=== PATIENT | male | born 1990 | race Caucasian/White ===

== ENCOUNTER 2019-01-07 13:41 | Emergency (ER) | payer BC ==
--- NOTE | 2019-01-07 14:06 | EDM.PDOC ---
ED HPI GENERAL MEDICAL PROBLEM - General Chief Complaint: ENT Problem Stated Complaint: SORE THROAT,CONGESTION,COUGH Time Seen by Provider: 01/07/19 13:58 Source of Information: Reports: Patient, RN Notes Reviewed History Limitations: Reports: No Limitations - History of Present Illness INITIAL COMMENTS - FREE TEXT/NARRATIVE: Patient is a 28-year-old male who presents to the ED for the evaluation of chest congestion, cough, sore throat. Patient notes these symptoms have been present for about 3 days now. He notes that he has a productive cough, and that the sputum he is getting up is greenish in color. He states he can get up about a quarter size amount of phlegm each time he coughs. He notes that he has a sore throat, this is more of a dull ache in the back of his throat. He states that the pain is worsened when he tries to swallow any liquids. He complains of some nasal congestion as well, but no fevers or chills, nausea or vomiting or diarrhea, or chest pain. Patient states that he has a history of asthma or reactive airways disease, and normally uses an albuterol inhaler, but he has been out. He moved to [place] from [place] in July for a job on the [employer]. The patient also notes that he recently quit smoking about a month ago, he states he is an alcohol user, but denies any drug use. He has had a tonsillectomy, and his wisdom teeth taken out as well. Patient has no primary care provider in town. Throat Pain Score (Numeric/FACES): 2 - Related Data Allergies Allergy/AdvReac Type Severity Reaction Status Date / Time No Known Allergies Allergy Verified 01/07/19 14:01 Home Meds: Home Meds Albuterol Sulfate [Albuterol Sulfate Hfa] 8.5 gm IH Q4H PRN #1 inhaler 01/07/19 [Rx] Past Medical History Respiratory History: Reports: Asthma - Past Surgical History HEENT Surgical History: Reports: Oral Surgery, Tonsillectomy Social & Family History - Tobacco Use Smoking Status *Q: Former Smoker Used Tobacco, but Quit: Yes Month/Year Tobacco Last Used: 12/30/18 - Caffeine Use Caffeine Use: Reports: Coffee, Energy Drinks - Recreational Drug Use Recreational Drug Use: No ED ROS ENT - Review of Systems Review Of Systems: See Below Constitutional: Denies: Fever, Chills HEENT: Reports: Throat Pain, Other (nasal congestion) Respiratory: Reports: Cough, Sputum. Denies: Wheezing Cardiovascular: Denies: Chest Pain Endocrine: Reports: No Symptoms GI/Abdominal: Denies: Diarrhea, Nausea, Vomiting : Reports: No Symptoms Musculoskeletal: Reports: No Symptoms Skin: Reports: No Symptoms Neurological: Reports: No Symptoms Psychiatric: Reports: No Symptoms Hematologic/Lymphatic: Reports: No Symptoms Immunologic: Reports: No Symptoms ED EXAM, ENT - Physical Exam Exam: See Below Exam Limited By: No Limitations General Appearance: Alert, WD/WN, No Apparent Distress Eye Exam: Bilateral Eye: EOMI, Normal Inspection, PERRL Ears: Normal External Exam, Normal Canal, Hearing Grossly Normal, Normal TMs Nose: Normal Inspection, No Blood, Injected Turbinates (bilateral) Mouth/Throat: Normal Inspection, Normal Gums, Normal Lips, Normal Oropharynx ( slightly erythematous, but looks as if it might irritation), Normal Teeth Head: Atraumatic, Normocephalic Neck: Normal Inspection, Supple, Non-Tender, Full Range of Motion Respiratory/Chest: No Respiratory Distress, Lungs Clear, No Accessory Muscle Use , Chest Non-Tender, Decreased Breath Sounds (diminished breath sounds bilaterally) Cardiovascular: Normal Peripheral Pulses, Regular Rate, Rhythm, No Murmur Extremities: Normal Inspection, Normal Capillary Refill Neurological: Alert, Oriented, Normal Cognition, No Motor/Sensory Deficits Psychiatric: Normal Affect, Normal Mood Skin: Warm, Dry, Intact, Normal Color, No Rash Course - Vital Signs Last Recorded V/S: Last Vital Signs Temp 98.0 F 01/07/19 13:58 Pulse 56 L 01/07/19 13:58 Resp 16 01/07/19 13:58 BP 133/76 01/07/19 13:58 Pulse Ox 97 01/07/19 13:58 - Orders/Labs/Meds Orders: Active Orders 24 hr Category Date Time Status Influenza Vaccine Charge [RC] .DISCHARGE Care 01/07/19 14:05 Ordered CULTURE STREP A CONFIRMATION [RM] Stat Lab 01/07/19 14:05 Results STREP SCRN A RAPID W CULT CONF [RM] Stat Lab 01/07/19 14:05 Ordered Meds: Medications Discontinued Medications Generic Name Dose Route Start Last Admin Trade Name Freleanne PRN Reason Stop Dose Admin Influenza Virus Vaccine 1 each 01/07/19 14:05 Pharmacy To Dose - Influenza Vaccine IM 01/07/19 14:06 ONETIME ONE Influenza Virus Vaccine 60 mcg 01/07/19 14:15 01/07/19 14:31 Fluzone Quad [id number] Syringe IM 01/07/19 14:16 60 mcg .ONCE ONE Administration - Re-Assessments/Exams Free Text/Narrative Re-Assessment/Exam: 01/07/19 14:28 Patient presents to the ED for the evaluation for a sore throat, cough, and chest congestion. I did order a strep screen to evaluate for strep throat. The patient did state that he did run out of his inhaler a few days ago, and was requesting a new one at this visit. I will provide him with a script for one, and recommend that he follow up with family practice for further asthma needs. 01/07/19 14:36 Patient's rapid strep screen is negative, this however will be sent for culture for confirmation. Although I highly suspect this to will be negative. Patient will be discharged home with general recommendations. Departure - Departure Time of Disposition: 14:37 Disposition: Home, Self-Care 01 Condition: Fair Clinical Impression: Viral URI with cough, History of reactive airway disease - Discharge Information *PRESCRIPTION DRUG MONITORING PROGRAM REVIEWED*: No *COPY OF PRESCRIPTION DRUG MONITORING REPORT IN PATIENT OWEN: No Prescriptions: Albuterol Sulfate [Albuterol Sulfate Hfa] 8.5 gm IH Q4H PRN #1 inhaler PRN Reason: Shortness Of Breath Instructions: Viral Respiratory Infection, [id number] Referrals: PCP,None [Primary Care Provider] - Forms: ED Department Discharge Additional Instructions: You have been evaluated in the ED today for your cold like symptoms, cough, sore throat. This is likely a viral illness in etiology. Please increase your fluid intake. Get plenty of rest as well. You should feel better in a few days. Recommend that you take some [id number] nasal decongestants, cough/cold remedies to combat this. Medicines like NyQuil, DayQuil, phenylephrine and other sinus decongestants are adequate. If your symptoms are not better in one week's time recommend that you follow up in a clinic or your primary care provider. Our [facility] clinic number [phone], the [place] [facility] number is [phone]. Any family practice provider would be able to provide you with the services. You were provided with a script for an albuterol inhaler. This was electronically sent to the [place] [facility] located in the [employer] [facility]. Please use 1-2 puffs Q4H PRN for shortness of breath. This pharmacy is located at [address] [place] [address]. Please return to the ED if your symptoms change or worsen. - My Orders Last 24 Hours: My Active Orders 01/07/19 14:05 Influenza Vaccine Charge [RC] .DISCHARGE CULTURE STREP A CONFIRMATION [RM] Stat STREP SCRN A RAPID W CULT CONF [RM] Stat - Assessment/Plan Last 24 Hours: My Active Orders 01/07/19 14:05 Influenza Vaccine Charge [RC] .DISCHARGE CULTURE STREP A CONFIRMATION [RM] Stat STREP SCRN A RAPID W CULT CONF [] Stat
[2019-01-07] MEDS ORDERED: FLU Vacc QS2019-20(6MOS+)/PF 60 MCG/0.5 ML SYRINGE IM ONE (14:15)
== END 2019-01-07 14:43 | disposition home or self-care (01) ==
LOC: JD.ED 13:41
DX: J06.9 Acute upper respiratory infection, unspecified (principal); J45.909 Unspecified asthma, uncomplicated; R09.89 Other specified symptoms and signs involving the circulatory and respiratory systems; Z87.891 Personal history of nicotine dependence
CPT/HCPCS: 87081; 87430; 90686; 99283-25; G0008